=== PATIENT | female | born 1985 ===

== ENCOUNTER 2017-10-08 13:01 | Emergency (ER) | payer MEDICAID, OTHER ==
[2017-10-08 13:01] VITALS: BMI 27.4
[2017-10-08 13:17] VITALS: BP 114/75; PULSE 94; RESP 18; TEMP 99.4; O2SAT 98
--- NOTE | 2017-10-08 14:05 | ED PDOC ---
HPI: CCC, URI, Sore Throat Time Seen by Provider: 10/08/17 13:37 Chief Complaint (Nursing): Cough, Cold, Congestion Chief Complaint (Provider): Cough, Cold, Congestion History Per: Patient History/Exam Limitations: no limitations Onset/Duration Of Symptoms: Days (x1) Current Symptoms Are (Timing): Still Present Sick Contacts (Context): Family Member(s) (son with pneumonia) Additional Complaint(s): Nilsa Hoang is a 32 year old female who presents to the emergency department with a complaint of general weakness associated with headaches, chills, bodyaches, sore throat and nasal congestion since this morning. Patient stated she has a son at home, recently diagnosed with pneumonia. Denied any fever or cough at this time. PMD: none provided Past Medical History Reviewed: Historical Data, Nursing Documentation, Vital Signs Vital Signs: Last Vital Signs Temp 99.4 F 10/08/17 13:13 Pulse 94 H 10/08/17 13:13 Resp 18 10/08/17 13:13 BP 114/75 10/08/17 13:13 Pulse Ox 98 10/08/17 15:03 - Medical History PMH: Diabetes, HTN (pre-eclampsia) Denies: Hepatitis, HIV, Chronic Kidney Disease, Seizures, Sexually Transmitted Disease - Surgical History Surgical History: No Surg Hx - Family History Family History: States: Unknown Family Hx - Social History Current smoker - smoking cessation education provided: No Ex-Smoker (has not smoked in the last 12 months): No Alcohol: None Drugs: Denies - Immunization History Hx Tetanus Toxoid Vaccination: No Hx Influenza Vaccination: Yes Hx Pneumococcal Vaccination: No - Home Medications Home Medications: Ambulatory Orders Medication Instructions Recorded Amoxicillin/Clavulanate [Augmentin 1 tab PO BID #0 tab 09/12/16 875 MG-125 MG] Multivit/Folic Acid/I 1 tab PO DAILY #0 tab 09/12/16 [] hydroCHLOROthiazide [Microzide] 12.5 mg PO DAILY #0 cap 09/12/16 oxyCODONE/Acetaminophen [Percocet 1 ea PO TID PRN #0 tab 09/12/16 5/325 mg Tab] - Allergies Allergies/Adverse Reactions: Allergies Allergy/AdvReac Type Severity Reaction Status Date / Time No Known Allergies Allergy Verified 09/22/16 14:42 Review of Systems ROS Statement: Except As Marked, All Systems Reviewed And Found Negative Constitutional: Positive for: Chills, Weakness, Other (general bodyaches). Negative for: Fever ENT: Positive for: Nose Discharge, Throat Pain Respiratory: Negative for: Cough, Shortness of Breath Neurological: Positive for: Headache Physical Exam - Reviewed Nursing Documentation Reviewed: Yes Vital Signs Reviewed: Yes - Physical Exam Appears: Positive for: Well, Non-toxic, No Acute Distress Head Exam: Positive for: ATRAUMATIC, NORMAL INSPECTION, NORMOCEPHALIC Skin: Positive for: Normal Color, Warm, Dry Eye Exam: Positive for: Normal appearance, EOMI. Negative for: Nystagmus ENT: Positive for: Normal ENT Inspection, Pharynx Is (bilateral clear). Negative for: Sinus Pain/Drainage, Nasal Congestion, Pharyngeal Erythema, Tonsillar Exudate, Tonsillar Swelling Neck: Positive for: Normal, Painless ROM, Supple. Negative for: Decreased ROM Cardiovascular/Chest: Positive for: Regular Rate, Rhythm, Chest Non Tender Respiratory: Positive for: Normal Breath Sounds. Negative for: Decreased Breath Sounds, Respiratory Distress Neurologic/Psych: Positive for: Alert, Oriented - ECG O2 Sat by Pulse Oximetry: 98 (RA) Pulse Ox Interpretation: Normal Medical Decision Making Medical Decision Making: Initial Impression: URI Differential Diagnosis: Influenza Initial Plan: * Influenza A B Time: 1459 --Negative for influenza. --Upon provider reevaluation, patient is medically stable and requires no further treatment in the ED at this time. Patient will be discharged home. Counseling was provided and all questions were answered regarding diagnosis and need for follow up with PCP in 2-3 days. There is agreement to discharge plan. Return if symptoms persist or worsen. Clinical Impression: Cough ~ Scribe Attestation: Documented by Tiffany Hallman, acting as a scribe for Arthur Ferraro MD. Provider Scribe Attestation: All medical record entries made by the Scribe were at my direction and personally dictated by me. I have reviewed the chart and agree that the record accurately reflects my personal performance of the history, physical exam, medical decision making, and the department course for this patient. I have also personally directed, reviewed, and agree with the discharge instructions and disposition. Disposition - Clinical Impression Clinical Impression: Cough - Patient ED Disposition Is Patient to be Admitted: No Doctor Will See Patient In The: Office Counseled Patient/Family Regarding: Studies Performed, Diagnosis, Need For Followup - Disposition Referrals: [facility] [Outside] Disposition: Routine/Home Disposition Time: 14:59 Condition: GOOD Additional Instructions: Follow up with your PCP in 2-3 days. Instructions: Upper Respiratory Infection (ED)
== END 2017-10-08 15:28 | disposition home or self-care (01) ==
LOC: H.ER 13:01
DX: R05 Cough (principal)

== ENCOUNTER 2018-10-05 18:22 | Emergency (ER) | payer MEDICAID ==
[2018-10-05 18:23] VITALS: BMI 27.4
[2018-10-05 18:44] VITALS: BP 129/81; PULSE 105; RESP 16; TEMP 98.4; O2SAT 96
[2018-10-05] MEDS ORDERED: Lactated Ringer's 1,000 ML IV STA (18:58)
--- NOTE | 2018-10-05 19:21 | ED PDOC ---
HPI: Female Pain Time Seen by Provider: 10/05/18 18:46 Chief Complaint (Nursing): Female Genitourinary Chief Complaint (Provider): Vaginal Bleeding History Per: Patient Onset/Duration Of Symptoms: Hrs (x2) Current Symptoms Are (Timing): Still Present Additional Complaint(s): Nilsa Hoang, a 33 year old female and history of , one miscarriage at 7 weeks, hypertension, and thyroid disease, presents to the ED reporting sudden onset of heavy vaginal bleeding at 5pm today. Patient reports using over 4 pads in the last 2 hours with clots and pelvic cramping. She reports not starting care. Patient states she had an episode of x1 day spotting that resolved spontaneously, and she went to [facility] and was found to have 6 weeks IUP with no abnormalities. PCP: Oksana Modi Abnormal Vaginal Bleeding: Yes : 4 Para: 2 Miscarriage: 1 (at 7 weeks) Past Medical History Reviewed: Historical Data, Nursing Documentation, Vital Signs Vital Signs: Last Vital Signs Temp 98.4 F 10/05/18 18:41 Pulse 105 H 10/05/18 18:41 Resp 16 10/05/18 18:41 BP 129/81 10/05/18 18:41 Pulse Ox 96 10/05/18 18:41 - Medical History PMH: Diabetes, HTN (pre-eclampsia) Denies: Hepatitis, HIV, Chronic Kidney Disease, Seizures, Sexually Transmitted Disease Other PMH: thyroid disease - Surgical History Surgical History: No Surg Hx - Family History Family History: States: No Known Family Hx - Social History Current smoker - smoking cessation education provided: Yes - Immunization History Hx Tetanus Toxoid Vaccination: No Hx Influenza Vaccination: Yes Hx Pneumococcal Vaccination: No - Home Medications Home Medications: Ambulatory Orders Medication Instructions Recorded Amoxicillin/Clavulanate [Augmentin 1 tab PO BID #0 tab 09/12/16 875 MG-125 MG] RX: Multivit/Folic Acid/I 1 tab PO DAILY #0 tab 09/12/16 [] RX: hydroCHLOROthiazide [Microzide] 12.5 mg PO DAILY #0 cap 09/12/16 oxyCODONE/Acetaminophen [Percocet 1 ea PO TID PRN #0 tab 09/12/16 5/325 mg Tab] ARIPiprazole [Abilify] 10 mg PO DAILY 09/23/18 Acetaminophen [Tylenol 325mg tab] 650 mg PO Q6 PRN #30 tab 09/23/18 Clonazepam [Klonopin] 0.5 mg PO DAILY 09/23/18 Escitalopram [Lexapro] 20 mg PO DAILY 09/23/18 Acetaminophen with Codeine 1 tab PO Q6 PRN #10 tab 10/05/18 [Tylenol with Codeine No. 3 300 mg-30 mg] RX: Ibuprofen [Motrin Tab] 600 mg PO Q8 PRN #30 tab 10/05/18 - Allergies Allergies/Adverse Reactions: Allergies Allergy/AdvReac Type Severity Reaction Status Date / Time No Known Allergies Allergy Verified 10/05/18 18:41 Review of Systems ROS Statement: Except As Marked, All Systems Reviewed And Found Negative Genitourinary Female: Positive for: Vaginal Bleeding (heavy, sudden onset with clots and pelvic cramping) Physical Exam - Reviewed Nursing Documentation Reviewed: Yes Vital Signs Reviewed: Yes - Physical Exam Appears: Positive for: Non-toxic, In Acute Distress (acute painful distress) Head Exam: Positive for: ATRAUMATIC, NORMOCEPHALIC Skin: Positive for: Warm, Dry Eye Exam: Positive for: EOMI, PERRL ENT: Positive for: Other (dry mucous membranes) Neck: Positive for: Painless ROM, Supple Cardiovascular/Chest: Positive for: Regular Rate, Rhythm, Chest Non Tender Respiratory: Positive for: Normal Breath Sounds. Negative for: Respiratory Distress Gastrointestinal/Abdominal: Positive for: Soft, Tenderness (suprapubic tenderness upon palpation), Other (Mcburney's point tenderness, Gabriel's sign). Negative for: Mass, Guarding, Rebound Back: Positive for: Normal Inspection. Negative for: Muscle Spasm Extremity: Positive for: Normal ROM. Negative for: Deformity Lymphatic: Negative for: Adenopathy Neurologic/Psych: Positive for: Alert. Negative for: Motor/Sensory Deficits - Laboratory Results Result Diagrams: 10/05/18 19:07 10/05/18 19:07 - ECG O2 Sat by Pulse Oximetry: 96 (RA) Pulse Ox Interpretation: Normal Medical Decision Making Medical Decision Making: Time: 1857 Initial Impression: Vaginal bleeding in . Differential diagnosis includes but not limited to complete vs incomplete miscarriage, anemia, threaten miscarriage, coagulopathy Initial Plan: --labs --urine --urine dipstick --Tylenol 975 mg PO US demonstrated no findings of IUP. Reviewed recent ER visit at [facility] that demonstrated IUP with FH. Current findings c/w complete miscarriage. Pt improved after ER treatment. DW pt findings and plan of care. f/u IN [place]. Bleeding precautions given. Scribe Attestation: Documented by Dale Nagel, acting as a scribe for Yumiko Holder MD. Provider Scribe Attestation: All medical record entries made by the Scribe were at my direction and personally dictated by me. I have reviewed the chart and agree that the record accurately reflects my personal performance of the history, physical exam, medical decision making, and the department course for this patient. I have also personally directed, reviewed, and agree with the discharge instructions and disposition. Disposition - Clinical Impression Clinical Impression: Miscarriage Counseled Patient/Family Regarding: Studies Performed, Diagnosis, Need For Followup, Rx Given - [facility]position [facility] ([facility]) Disposition: Routine/Home Disposition Time: 20:00 Condition: STABLE Prescriptions: Acetaminophen with Codeine [Tylenol with Codeine No. 3 300 mg-30 mg] 1 tab PO Q6 PRN #10 tab PRN Reason: SEVERE PAIN ONLY RX: Ibuprofen [Motrin Tab] 600 mg PO Q8 PRN #30 tab PRN Reason: Pain, Moderate (4-7) Instructions: Miscarriage (DC) Forms: [employer] (Faroese)
[2018-10-05 20:07] LABS: BASO # 0.1 K/uL (0.0-0.2); BASO % 0.8 % (0.0-2.0); EOS # 0.1 K/uL (0.0-0.7); INR 0.9; LYMPH # 2.5 K/uL (1.0-4.3); LYMPH % 16.6 % (20.0-40.0); MEAN CELL VOLUME 74.7 fl (81.0-99.0); MEAN CORPUSCULAR HEMOGLOBIN 23.8 pg (27.0-31.0); MEAN CORPUSCULAR HGB CONC 31.8 g/dL (33.0-37.0); MEAN PLATELET VOLUME 8.2 fl (7.2-11.7); MONO % 6.8 % (0.0-10.0); NEUT # 11.3 K/uL (1.8-7.0); NEUT % 74.8 % (50.0-75.0); PROTHROMBIN TIME 10.6 Seconds (9.8-13.1); RBC 4.65 Mil/uL (3.80-5.20); RED CELL DISTRIBUTION WIDTH 16.1 % (11.5-14.5); WHITE BLOOD COUNT 15.1 K/uL (4.8-10.8)
[2018-10-05 20:11] LABS: PARTIAL THROMBOPLASTIN TIME 27.9 Seconds (25.6-37.1)
[2018-10-05 20:12] LABS: ALB/GLOB RATIO 1.2 (1.0-2.1); ALBUMIN 3.6 g/dL (3.5-5.0); ALT/SGPT 21 U/L (9-52); AST/SGOT 20 U/L (14-36); BLOOD UREA NITROGEN 13 mg/dl (7-17); CALCIUM 8.8 mg/dL (8.4-10.2); GFR NON-AFRICAN AMERICAN > 60
[2018-10-05] MEDS ORDERED: Dextrose 5%/Lactated Ringer's 1,000 ML IV SCH (21:15)
--- NOTE | 2018-10-06 08:22 | US ---
Date of service: 10/05/2018 HISTORY: 7 wk preg vag bleed COMPARISON: None available. TECHNIQUE: Real-time transvaginal ultrasound examination of the pelvis was performed. FINDINGS: UTERUS: Measures 10.5 x 5.7 x 4.6 cm. Normal in size and appearance. No fibroid or other mass lesion seen. ENDOMETRIUM: Measures 15 mm in diameter. There is heterogeneous echogenicity of the endometrial complex. Underlying debris cannot be excluded. No intrauterine gestational sac is identified in this region. CERVIX: No cervical abnormality identified. RIGHT OVARY: Measures 3 x 2.3 x 2.5 cm. No solid mass. Normal flow. There is however evidence of a 1.6 x 1 x 1.2 centimeter hypoechoic cyst in the right ovary without internal echoes. LEFT OVARY: Measures 2.2 x 1.4 x 2.5 cm. No solid mass. Normal flow. FREE FLUID: No significant free fluid noted. OTHER FINDINGS: None. IMPRESSION: No evidence of intrauterine gestational sac. This should be further correlated with patient's laboratory values. Finding may suggest missed if there is positive beta HCG laboratory value. Small right ovarian simple cyst probably representing corpus luteal cyst or follicular cyst. This agrees with preliminary report.
== END 2018-10-05 23:32 | disposition home or self-care (01) ==
LOC: H.ER 18:22
DX: O03.9 Complete or unspecified spontaneous abortion without complication (principal); Z3A.01 Less than 8 weeks gestation of pregnancy
CPT/HCPCS: 76817; 80053; 84702; 85025; 85610; 85730; 86850; 86900; 96374; 99283; J1885; J7120